=== PATIENT | male | born 1990 | race Caucasian/White ===

== ENCOUNTER 2018-05-17 12:59 | Emergency (ER) ==
[2018-05-17 13:03] VITALS: BP 165/99; TEMP 99.7; BMI 40.0
[2018-05-17] MEDS ORDERED: LIDOCAINE HCL 1% SDV SUBCUT STA (15:26)
[2018-05-17] MEDS ORDERED: LIDOCAINE HCL 1% SDV ONE (15:27)
--- NOTE | 2018-05-17 15:34 | ED.PDOC ---
General ED Provider: Dr. AISSATOU SANCHEZ Chief Complaint: Tooth Problem Stated Complaint: DENTAL PAIN Time Seen by Physician: 13:00 Mode of Arrival: Walk-In Information Source: Patient Exam Limitations: No limitations Primary Care Provider: DIOGO JUSTICE Nursing and Triage Documentation Reviewed and Agree: Yes Does patient meet sepsis criteria?: No System Inflammatory Response Syndrome: Not Applicable Sepsis Protocol: For patient's 13 years and over: Temp is 96.8 and below OR 101 and greater Pulse >90 BPM Resp >20/minute Acutely Altered Mental Status Are patient's symptoms suggestive of a new infection, such as: -Pneumonia -Skin, Soft Tissue -Endocarditis -UTI -Bone, Joint Infection -Implantable Device -Acute Abdominal Infection -Wound Infection -Meningitis -Blood Stream Catheter Infection -Unknown EENT Complaint Exam - Dental/Oral Complaint/Exam Mechanism of Injury: No known trauma Onset/Duration: 1 WEEK Timing: Intermittent Initial Severity: Moderate Current Severity: Severe Character: Reports: Throbbing Aggravating: Reports: Heat, Cold Alleviating: Reports: Heat, Cold Associated Signs and Symptoms: Denies: Swelling, Discharge, Fever, Foul odor, Foul taste in mouth Related History: Reports: Similar episode Cardiac Risk Factors: Reports: None Dental/Oral Surgical History: Reports: None Tooth Findings: Present: Gross caries, Dental fracture Cervical Lymphadenopathy Present: No Facial Swelling Present: No Bleeding Present: No Oropharynx Findings: Absent: Clots, Active bleeding Septal Hematoma: No Foreign Body Present: No Dysphagia Present: No Drooling Present: No Asymmetrical Tonsillar Swelling Present: No Uvula Midline: Yes Sabiha-tonsillar Fluctuence: No Trismus Present: No Palatal Petechiae Present: No Scarlatinaform Rash Present: No Lesions: Absent: Lip, Gums, Tongue, Buccal Mucosa, Pharynx Exanthem: Absent: Lip, Gums, Tongue, Buccal Mucosa, Pharynx Vesicles: Absent: Lip, Gums, Tongue, Buccal Mucosa, Pharynx Teeth Picture: 1 - BROKEN Differential Diagnoses: Dental Caries, Fractured Tooth Review of Systems - Review Of Systems Constitutional: Reports: No symptoms Eyes: Reports: No symptoms Ears, Nose, Mouth, Throat: Reports: No symptoms Respiratory: Reports: No symptoms Cardiac: Reports: No symptoms GI: Reports: No symptoms : Reports: No symptoms Musculoskeletal: Reports: No symptoms Skin: Reports: No symptoms Neurological: Reports: No symptoms Endocrine: Reports: No symptoms Hematologic/Lymphatic: Reports: No symptoms All Other Systems: Reviewed and Negative Past Medical History - Past Medical History Previously Healthy: Yes Endocrine: Reports: None Cardiovascular: Reports: None Respiratory: Reports: None Hematological: Reports: None Gastrointestinal: Reports: None Genitourinary: Reports: None Neuro/Psych: Reports: None Musculoskeletal: Reports: None Cancer: Reports: None - Surgical History General Surgical History: Reports: None - Family History Family History: Reports: None - Social History Smoking Status: Current every day smoker Hx Substance Use: No Alcohol Screening: None Physical Exam - Physical Exam Appearance: Well-appearing, No pain distress, Well-nourished Eyes: RAFAELA, EOMI, Conjunctiva clear ENT: Ears normal, Nose normal, Oropharynx normal Respiratory: Airway patent, Breath sounds clear, Breath sounds equal, Respirations nonlabored Cardiovascular: RRR, Pulses normal, No rub, No murmur GI/: Soft, Nontender, No masses, Bowel sounds normal, No Organomegaly Musculoskeletal: Normal strength, ROM intact, No edema, No calf tenderness Skin: Warm, Dry, Normal color Neurological: Sensation intact, Motor intact, Reflexes intact, Cranial nerves intact, Alert, Oriented Psychiatric: Affect appropriate, Mood appropriate Procedures - Additional Procedures Additional Procedures: Dental Block (1ML PLAIN LIDOCAINE USED ,IMMEDIATE PAIN RELIFE NOTED ) Critical Care Note - Critical Care Note Total Time (mins): 0 Course - Course Orders, Labs, Meds: Orders Category Date Time Status Lidocaine HCl/Pf [Lidocaine HCl 1% Sdv] MEDS 05/17/18 15:27 Discontinued 5 ml .ROUTE .STK-MED ONE Lidocaine HCl/Pf [Lidocaine HCl 1% Sdv] MEDS 05/17/18 15:26 Stat 5 ml SUBCUT ONCE STA Medications Discontinued Medications Generic Name Dose Route Start Last Admin Trade Name Freq PRN Reason Stop Dose Admin Lidocaine HCl 5 ml 05/17/18 15:26 Lidocaine Hcl 1% Sdv SUBCUT 05/17/18 15:27 ONCE STA Vital Signs: Temp Pulse Resp BP Pulse Ox 05/17/18 13:01 99.7 F H 113 H 16 165/99 H 96 Departure - Departure Time of Disposition: 15:35 (ALICE FROM ADMINSTRATION WAS PRESENT) Disposition: HOME SELF-CARE Discharge Problem: Toothache Instructions: Toothache (ED) Condition: Good Pt referred to PMD for follow-up: Yes IPMP verified?: No Additional Instructions: Please call your Family Physician as soon as possible to schedule a follow-up appointment. Prescriptions: Amoxicillin 500 mg PO Q8HR #30 tablet Hydrocodone/Acetaminophen [[place] 10-325 Tablet] 1 each PO Q8HR #20 tablet Allergies/Adverse Reactions: Allergies No Known Allergies Allergy (Unverified 05/17/18 13:03) Home Medications: Ambulatory Orders Amoxicillin 500 mg PO Q8HR #30 tablet 05/17/18 Fluticasone Propionate [Flonase] 1 spray NS BID 05/17/18 Hydrocodone/Acetaminophen [[place] 10-325 Tablet] 1 each PO Q8HR #20 tablet Disposition Discussed With: Patient, Family
== END 2018-05-17 15:52 | disposition home or self-care (01) ==
LOC: ED 12:59
DX: K08.89 Other specified disorders of teeth and supporting structures (principal); K02.7 Dental root caries; S02.5XXA Fracture of tooth (traumatic), initial encounter for closed fracture; F17.210 Nicotine dependence, cigarettes, uncomplicated
CPT/HCPCS: 99282

== ENCOUNTER 2018-06-27 05:56 | Emergency (ER) ==
[2018-06-27 06:02] VITALS: BP 152/99; TEMP 97.7; BMI 40.4
[2018-06-27] MEDS ORDERED: MOTRIN PO STA (06:27)
[2018-06-27] MEDS ORDERED: AMOXIL PO STA (06:27)
--- NOTE | 2018-06-27 06:29 | ED.PDOC ---
General ED Provider: Dr. TESS SEGUNDO Chief Complaint: Tooth Problem Stated Complaint: Patient is a 27 year old male who states he has a bad tooth on the left upper molar. Time Seen by Physician: 06:26 Mode of Arrival: Walk-In Information Source: Patient Exam Limitations: No limitations Primary Care Provider: DIOGO JUSTICE Nursing and Triage Documentation Reviewed and Agree: Yes Does patient meet sepsis criteria?: No System Inflammatory Response Syndrome: Not Applicable Sepsis Protocol: For patient's 13 years and over: Temp is 96.8 and below OR 101 and greater Pulse >90 BPM Resp >20/minute Acutely Altered Mental Status Are patient's symptoms suggestive of a new infection, such as: -Pneumonia -Skin, Soft Tissue -Endocarditis -UTI -Bone, Joint Infection -Implantable Device -Acute Abdominal Infection -Wound Infection -Meningitis -Blood Stream Catheter Infection -Unknown EENT Complaint Exam - Dental/Oral Complaint/Exam Mechanism of Injury: No known trauma Onset/Duration: yesterday at noon Symptoms Are: Still present Timing: Constant Initial Severity: Moderate Current Severity: Severe Location: Left upper molar Character: Reports: Aching, Throbbing Aggravating: Reports: Heat, Cold, Chewing, Exertion (and smoking ) Alleviating: Reports: None Associated Signs and Symptoms: Reports: Swelling, Foul odor, Foul taste in mouth Related History: Reports: Similar episode Cardiac Risk Factors: Reports: None Dental/Oral Surgical History: Reports: None Tooth Findings: Present: Gross decay, Gross caries, Abcess Cervical Lymphadenopathy Present: No Facial Swelling Present: No Bleeding Present: No Oropharynx Findings: Absent: Clots, Active bleeding Septal Hematoma: No Foreign Body Present: No Dysphagia Present: No Drooling Present: No Asymmetrical Tonsillar Swelling Present: No Uvula Midline: No Sabiha-tonsillar Fluctuence: No Trismus Present: No Palatal Petechiae Present: No Scarlatinaform Rash Present: No Teeth Picture: 1 - Abscess, Tooth decay. Differential Diagnoses: Dental Abcess, Dental Caries Review of Systems - Review Of Systems Constitutional: Reports: No symptoms Eyes: Reports: No symptoms Ears, Nose, Mouth, Throat: Reports: Mouth pain Respiratory: Reports: No symptoms Cardiac: Reports: No symptoms GI: Reports: No symptoms : Reports: No symptoms Musculoskeletal: Reports: No symptoms Skin: Reports: No symptoms Neurological: Reports: No symptoms Endocrine: Reports: No symptoms Hematologic/Lymphatic: Reports: No symptoms All Other Systems: Reviewed and Negative Past Medical History - Past Medical History Previously Healthy: Yes Endocrine: Reports: None Cardiovascular: Reports: None Respiratory: Reports: None Hematological: Reports: None Gastrointestinal: Reports: None Genitourinary: Reports: None Neuro/Psych: Reports: None Musculoskeletal: Reports: None Cancer: Reports: None - Surgical History General Surgical History: Reports: None - Family History Family History: Reports: None - Social History Smoking Status: Current every day smoker Hx Substance Use: No Alcohol Screening: None Physical Exam - Physical Exam Appearance: Ill-appearing, Obese Ill-appearing: Mild Pain Distress: Severe Eyes: RAFAELA, EOMI, Conjunctiva clear ENT: Ears normal, Nose normal, Oropharynx normal Neck: Supple Respiratory: Airway patent, Breath sounds clear, Breath sounds equal, Respirations nonlabored Cardiovascular: RRR, Pulses normal, No rub, No murmur Musculoskeletal: Normal strength Skin: Warm, Dry Neurological: Alert, Oriented Psychiatric: Affect appropriate, Mood appropriate Re-Evaluation - Re-Evaluation Time of Re-Evaluation: 06:40 Status: Improved Critical Care Note - Critical Care Note Total Time (mins): 0 Course - Course Vital Signs: Temp Pulse Resp BP Pulse Ox 06/27/18 05:57 97.7 F 93 H 20 152/99 H 98 Departure - Departure Time of Disposition: 06:45 Disposition: HOME SELF-CARE Discharge Problem: Dental abscess, Toothache Instructions: Dental Abscess (ED), How to Stop Smoking (ED) Condition: Fair Pt referred to PMD for follow-up: Yes IPMP verified?: No Additional Instructions: Follow up with your Dentist soon take Antibiotics as prescribed. Stop smoking. Prescriptions: Amoxicillin [Amoxil] 500 mg PO TID #30 capsule Ibuprofen 800 mg PO TID PRN #60 tablet PRN Reason: Dental pain Allergies/Adverse Reactions: Allergies No Known Allergies Allergy (Unverified 05/17/18 13:03) Home Medications: Ambulatory Orders Fluticasone Propionate [Flonase] 1 spray NS BID 05/17/18 Amoxicillin [Amoxil] 500 mg PO TID #30 capsule 06/27/18 Ibuprofen 800 mg PO TID PRN #60 tablet 06/27/18 Disposition Discussed With: Patient
== END 2018-06-27 06:45 | disposition home or self-care (01) ==
LOC: ED 05:56
DX: K04.7 Periapical abscess without sinus (principal); K08.89 Other specified disorders of teeth and supporting structures; K02.7 Dental root caries; F17.210 Nicotine dependence, cigarettes, uncomplicated
CPT/HCPCS: 99282

== ENCOUNTER 2019-02-20 06:03 | Emergency (ER) ==
[2019-02-20 06:20] VITALS: BP 141/92; TEMP 97.6; BMI 35.4
--- NOTE | 2019-02-20 06:32 | ED.PDOC ---
General Stated Complaint: it hurts to cough or move Time Seen by Physician: 06:30 Mode of Arrival: Walk-In Information Source: Patient Exam Limitations: No limitations Nursing and Triage Documentation Reviewed and Agree: Yes Does patient meet sepsis criteria?: No System Inflammatory Response Syndrome: Not Applicable <JOVANNI FUENTES - Last Filed: 02/20/19 06:29> <LAURAAISSATOU - Last Filed: 02/20/19 08:18> ED Provider: Dr. AISSATOU HUNT Chief Complaint: Back Pain Primary Care Provider: DIO[facility] JUSTICE Sepsis Protocol: For patient's 13 years and over: Temp is 96.8 and below OR 101 and greater Pulse >90 BPM Resp >20/minute Acutely Altered Mental Status Are patient's symptoms suggestive of a new infection, such as: -Pneumonia -Skin, Soft Tissue -Endocarditis -UTI -Bone, Joint Infection -Implantable Device -Acute Abdominal Infection -Wound Infection -Meningitis -Blood Stream Catheter Infection -Unknown Respiratory Complaint Exam - Respiratory Complaint/Exam Onset/Duration: 24 hrs Symptoms Are: Still present Timing: Constant Initial Severity: Mild Current Severity: Moderate Location: Chest Character: Reports: Non-productive cough Alleviating: Reports: None Associated Signs and Symptoms: Reports: Pleuritic chest pain History of Healthcare-Acquired Pneumonia: No Pseudomonas Risk Factors: Reports: None Tuberculosis Risk Factors: Reports: None Status Asthmaticus Risk Factors: Reports: None Home Oxygen Use: No Recent Stress Test: No Recent Echo/LV Function: No Current Antibiotic Use: No Current Asthma Medication Use: No Respiratory Distress: None Inadequate Respiratory Effort: No Dysphagia Present: No Stridor Present: No JVD Present: No Accessory Muscle Use: No Retractions: Not Present Diminished Breath Sounds: No Sinus Tenderness: None Grunting Respirations: No Kussmaul Respirations: No Differential Diagnoses: Pneumonia, Other <JOVANNI FUENTES - Last Filed: 02/20/19 06:29> Review of Systems - Review Of Systems Constitutional: Reports: No symptoms Eyes: Reports: No symptoms Ears, Nose, Mouth, Throat: Reports: No symptoms Respiratory: Reports: Cough Cardiac: Reports: Chest pain GI: Reports: No symptoms : Reports: No symptoms Musculoskeletal: Reports: No symptoms Skin: Reports: No symptoms Neurological: Reports: No symptoms Endocrine: Reports: No symptoms Hematologic/Lymphatic: Reports: No symptoms All Other Systems: Reviewed and Negative <JOVANNI FUENTES Last Filed: 02/20/19 06:29> Past Medical History - Past Medical History Previously Healthy: Yes Endocrine: Reports: None Cardiovascular: Reports: None Respiratory: Reports: None Hematological: Reports: None Gastrointestinal: Reports: None Genitourinary: Reports: None Neuro/Psych: Reports: None Musculoskeletal: Reports: None Cancer: Reports: None - Surgical History General Surgical History: Reports: None - Family History Family History: Reports: None - Social History Smoking Status: Current every day smoker, Heavy tobacco smoker, Light tobacco smoker Hx Substance Use: No Alcohol Screening: Occasionally - Immunizations Tetanus Shot up to Date: Yes <ELIDASOFIAJOVANNI Last Filed: 02/20/19 06:29> Physical Exam - Physical Exam Appearance: Well-appearing, No pain distress, Well-nourished Eyes: RAFAELA, EOMI, Conjunctiva clear ENT: Ears normal, Nose normal, Oropharynx normal Neck: Supple Respiratory: Airway patent, Breath sounds clear, Breath sounds equal, Respirations nonlabored Cardiovascular: RRR, Pulses normal, No rub, No murmur GI/: Soft, Nontender, No masses, Bowel sounds normal, No Organomegaly Musculoskeletal: Normal strength, ROM intact, No edema, No calf tenderness Skin: Warm, Dry, Normal color Neurological: Sensation intact, Motor intact, Reflexes intact, Cranial nerves intact, Alert, Oriented Psychiatric: Affect appropriate <JOVANNI FUENTES Last Filed: 02/20/19 06:29> Physician Notification - Case Discussed Physician Notified: dr hunt Time of Notification: 07:00 <ALFREDOJOVANNI - Last Filed: 02/20/19 06:29> Critical Care Note - Critical Care Note Total Time (mins): 0 <AISSATOU HUNT - Last Filed: 02/20/19 08:18> Course - Course Hematology/Chemistry: 02/20/19 06:36 02/20/19 06:36 <AISSATOU HUNT - Last Filed: 02/20/19 08:18> - Course Orders, Labs, Meds: Lab Review 02/20/19 02/20/19 06:36 06:36 WBC 9.82 RBC 5.07 Hgb 15.9 Hct 45.1 MCV 89.0 MCH 31.4 H MCHC 35.3 RDW Coeff of Denisse 12.6 Plt Count 134 L Immature Gran % (Auto) 0.3 Neut % (Auto) 70.9 Lymph % (Auto) 20.2 [place] % (Auto) 5.7 Eos % (Auto) 2.4 Baso % (Auto) 0.5 Immature Gran # (Auto) 0.0 Neut # (Auto) 7.0 H Lymph # (Auto) 2.0 [place] # (Auto) 0.6 Eos # (Auto) 0.2 Baso # (Auto) 0.1 Sodium 141.4 Potassium 4.37 Chloride 107.4 H Carbon Dioxide 24.2 Anion Gap 14.17 BUN 16.5 Creatinine 1.02 Estimated GFR (MDRD) 88.00 BUN/Creatinine Ratio 16.17 Glucose 99.4 Calcium 9.15 Total Bilirubin 0.48 AST 29.9 ALT 27.0 Alkaline Phosphatase 42.3 Total Protein 6.73 Albumin 4.38 Globulin 2.35 Albumin/Globulin Ratio 1.86 Orders Category Date Time Status NPO REMINDER: IMAGING ONCE CARE 02/20/19 06:28 Active IV [ED IV/MEDIPORT/POWERPORT] .ONCE EMERGENCY 02/20/19 06:27 Active CBC W/ AUTO DIFF Stat LAB 02/20/19 06:36 Completed CMP [COMPREHENSIVE METABOLIC PANEL] Stat LAB 02/20/19 06:36 Completed 0.9 % Sodium Chloride [Saline Flush] MEDS 02/20/19 06:27 Active 1 syr IVF PRN PRN CT CHEST PE PROTOCOL Stat RADS 02/20/19 06:27 Completed Medications Generic Name Dose Route Start Last Admin Trade Name Freq PRN Reason Stop Dose Admin Sodium Chloride 1 syr 02/20/19 06:27 Saline Flush IVF PRN PRN To flush IV Vital Signs: Temp Pulse Resp BP Pulse Ox 02/20/19 06:07 97.6 F 69 20 141/92 H 97 Departure <JOVANNI FUENTES - Last Filed: 02/20/19 06:29> - Departure Time of Disposition: 08:13 Pt referred to PMD for follow-up: Yes IPMP verified?: No Disposition Discussed With: Patient <AISSATOU HUNT - Last Filed: 02/20/19 08:18> - Departure Disposition: HOME SELF-CARE Discharge Problem: Breast mass in male Chest pain Qualifiers: Chest pain type: unspecified Qualified Code(s): R07.9 - Chest pain, unspecified Instructions: Breast Mass (ED), Thoracolumbar Fracture (ED) Condition: Good Additional Instructions: Please call your Family Physician as soon as possible to schedule a follow-up appointment. 2 pots on your back are broken, these seem to be stable in nature and chronic per out x ray doctor. x ray doctor has noted a breast issue possible mass and has recommended that you to have a ULTRA SOUND OF THE BREAST AT A DEDICATED BREAST [facility] SEE YOUR M.D. FOR FURTHER CARE AND DISCUSS THESE ISSUES Allergies/Adverse Reactions: Allergies No Known Allergies Allergy (Unverified 05/17/18 13:03) Home Medications: Ambulatory Orders Fluticasone Propionate [Flonase] 1 spray NS BID 05/17/18 Ibuprofen 800 mg PO TID PRN 02/20/19
--- NOTE | 2019-02-20 07:40 | CT ---
EXAM: CTA CHEST (PE PROTOCOL) HISTORY: Pleuritic chest pain TECHNIQUE: CTA chest with intravenous contrast. Multiplanar images were provided with 3-D reconstru ctions. 100 mL Omnipaque. COMPARISON: None FINDINGS: No pulmonary arterial filling defect. Normal heart size. No pericardial effusion. Unremarkable tho racic aorta. Lungs are clear. No consolidations or vascular congestion. No pneumothorax. There is no pleural th ickening or pleural fluid. Bones reveal spinous process fractures at T8 and T9 which are age indeterminate although likely chron ic. Correlate clinically. Peripheral soft tissues demonstrate a right subareolar soft tissue opacit y measuring 2.5 x 3.2 cm. IMPRESSION: 1. No pulmonary arterial thromboembolism. 2. Lungs are clear. No pleural abnormality. 3. Spinous process fractures at T8 and T9, likely chronic. 4. Right subareolar soft tissue mass likely due to the asymmetric gynecomastia. Ultrasound followup at a dedicated breast center is recommended.
== END 2019-02-20 08:38 | disposition home or self-care (01) ==
LOC: ED 06:03
DX: R07.9 Chest pain, unspecified (principal); N63.0 Unspecified lump in unspecified breast; R05 Cough; M54.9 Dorsalgia, unspecified; S22.069A Unspecified fracture of T7-T8 vertebra, initial encounter for closed fracture; S22.079A Unspecified fracture of T9-T10 vertebra, initial encounter for closed fracture; F17.210 Nicotine dependence, cigarettes, uncomplicated
CPT/HCPCS: 36415; 80053; 85025; 99283

== ENCOUNTER 2019-04-12 09:10 | Emergency (ER) ==
[2019-04-12 09:14] VITALS: BP 131/90; TEMP 98.2; BMI 32.3
[2019-04-12] MEDS ORDERED: SODIUM CHLORIDE 1,000 ML IV STA ×3 (09:53→13:21)
--- NOTE | 2019-04-12 14:44 | ED.PDOC ---
General ED Provider: Dr. AISSATOU SANCHEZ Chief Complaint: Nausea/Vomiting Stated Complaint: N/V/ WEAKNESS Time Seen by Physician: 09:19 (NO NEURO DEFICITS UPON PRESENTATION) Mode of Arrival: Walk-In Information Source: Patient Exam Limitations: No limitations Primary Care Provider: DIOGO JUSTICE Nursing and Triage Documentation Reviewed and Agree: Yes Does patient meet sepsis criteria?: No System Inflammatory Response Syndrome: Not Applicable Sepsis Protocol: For patient's 13 years and over: Temp is 96.8 and below OR 101 and greater Pulse >90 BPM Resp >20/minute Acutely Altered Mental Status Are patient's symptoms suggestive of a new infection, such as: -Pneumonia -Skin, Soft Tissue -Endocarditis -UTI -Bone, Joint Infection -Implantable Device -Acute Abdominal Infection -Wound Infection -Meningitis -Blood Stream Catheter Infection -Unknown Neurological Complaint Exam - Syncope/Near Syncope Complaint/Exam Onset/Duration: 1 DAY. 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)NOT BEEN DRINKING ENOUGH Episodes Witnessed: No Loss of Consciousness: No Associated Head Trauma: No Activity at Onset: Unknown Aggravating: None Alleviating: Reports: None Associated Signs and Symptoms: Denies: Pain, Decreased oral intake, Vomiting, Diarrhea, GI blood loss, Short of air, Chest pain, Palpitations, Diaphoresis, Lightheadedness, Dizziness, Weakness, AMS, Numbness, Headache, Seizure, Remote head trauma, Recent head trauma Related History: Similar episode (DUE TO HEAT) Cardiac Risk Factors: Reports: None GI Bleed Risk Factors: Reports: None Dysrhythmia Risk Factors: Reports: None Related Surgical History: Reports: None JVD Present: No Carotid Bruit Present: No Rectal Heme Positive: No Glascow Coma Scale (see protocol): 15 Nystagmus Present: Yes Gag Reflex Present: No Meningeal Signs Positive: No Focal Weakness: Present: None Focal Sensory Loss: Present: None Gait: Normal [id number]: Normal Findings Romberg Test Positive: No Babinski Sign: Negative Right, Negative Left Heel to Toe Normal: Yes Branch-Hallpike Test Positive: No Differential Diagnoses: Metabolic Reaction, Vasovagal Episode Quality Indicators for Cardiac Chest Pain: EKG in 10min. Quality Indicator For Non-Traumatic Chest Pain/Syncope: EKG Performed Quality Indicators for AMI: EKG in 10min. Review of Systems - Review Of Systems Constitutional: Reports: No symptoms Eyes: Reports: No symptoms Ears, Nose, Mouth, Throat: Reports: No symptoms Respiratory: Reports: No symptoms Cardiac: Reports: No symptoms GI: Reports: Nausea, Poor appetite, Vomiting : Reports: No symptoms Musculoskeletal: Reports: No symptoms Skin: Reports: No symptoms Neurological: Reports: No symptoms Endocrine: Reports: No symptoms Hematologic/Lymphatic: Reports: No symptoms All Other Systems: Reviewed and Negative Past Medical History - Past Medical History Previously Healthy: Yes Endocrine: Reports: None Cardiovascular: Reports: None Respiratory: Reports: None Hematological: Reports: None Gastrointestinal: Reports: None Genitourinary: Reports: None Neuro/Psych: Reports: None Musculoskeletal: Reports: None Cancer: Reports: None - Surgical History General Surgical History: Reports: None - Family History Family History: Reports: None - Social History Smoking Status: Current every day smoker Hx Substance Use: No Alcohol Screening: None Physical Exam - Physical Exam Appearance: Well-appearing, No pain distress, Well-nourished Eyes: RAFAELA, EOMI, Conjunctiva clear ENT: Ears normal, Nose normal, Oropharynx normal Respiratory: Airway patent, Breath sounds clear, Breath sounds equal, Respirations nonlabored Cardiovascular: RRR, Pulses normal, No rub, No murmur GI/: Soft, Nontender, No masses, Bowel sounds normal, No Organomegaly Musculoskeletal: Normal strength, ROM intact, No edema, No calf tenderness Skin: Warm, Dry, Normal color Neurological: Sensation intact, Motor intact, Reflexes intact, Cranial nerves intact, Alert, Oriented Psychiatric: Affect appropriate, Mood appropriate - NIH Stroke Scale 1a. Level of Consciousness: 0=Alert and keenly responsive 1b. Level of Consciousness Questions: 0=Answers correctly to two questions 1c. Level of Consciousness Commands: 0=Performs two tasks correctly 2. Best Gaze: 0=Normal 3. Visual: 0=No visual loss 4. Facial Palsy: 0=Normal 5a. Motor Left Arm: 0=No drift,arm holds 90 degrees for 10 sec., leg 30 degrees for 5 sec. 5b. Motor Right Arm: 0=No drift,arm holds 90 degrees for 10 sec., leg 30 degrees for 5 sec. 6b. Motor Right Le=No drift,arm holds 90 degrees for 10 sec., leg 30 degrees for 5 sec. 7. Limb Ataxia: 0=Absent 8. Sensory: 0=Normal 10. Dysarthria: 0=Normal 11. Extincion and Inattention: 0=Normal Stroke Scale Total: 0 Interpretation - Inspector Outside Steam Distribution Rate: Normal Rhythm: Sinus Ectopy: None - EKG Interpretation Rate: Normal Rhythm: Sinus Re-Evaluation - Re-Evaluation Time of Re-Evaluation: 11:00 Status: Improved Vital Signs Stable: Yes Pain Level: 0 Appearance: NAD Lungs: Clear Skin: Warm and Dry Neuro: Alert and Oriented X3 CV: RRR - Re-Evaluation Time of Re-Evaluation: 14:46 Status: Improved Vital Signs Stable: Yes Pain Level: 0 Appearance: NAD Skin: Warm and Dry Neuro: Alert and Oriented X3 CV: RRR (HYDRATION MADE PT FEEL MARKEDLY IMPROVED BUN/INDUSTRIAL CUSTODIAN DISCUSSED MUST REPEAT IN 1 WEEKS TIMES) Critical Care Note - Critical Care Note Total Time (mins): 0 Course - Course Hematology/Chemistry: 04/12/19 10:00 04/12/19 12:40 Orders, Labs, Meds: Lab Review 04/12/19 04/12/19 04/12/19 10:00 10:00 10:38 WBC 9.58 RBC 5.52 Hgb 17.1 Hct 48.4 MCV 87.7 MCH 31.0 MCHC 35.3 RDW Coeff of Denisse 12.6 Plt Count 176 Immature Gran % (Auto) 0.2 Neut % (Auto) 77.3 Lymph % (Auto) 14.2 [place] % (Auto) 6.6 Eos % (Auto) 1.4 Baso % (Auto) 0.3 Immature Gran # (Auto) 0.0 Neut # (Auto) 7.4 H Lymph # (Auto) 1.4 [place] # (Auto) 0.6 Eos # (Auto) 0.1 Baso # (Auto) 0.0 Sodium 142.9 Potassium 4.35 Chloride 101.7 Carbon Dioxide 27.1 Anion Gap 18.45 BUN 28.2 H Creatinine 1.53 H Estimated GFR (MDRD) 55.00 BUN/Creatinine Ratio 18.43 Glucose 87.7 Calcium 10.10 Total Bilirubin 0.69 AST 31.9 ALT 29.7 Alkaline Phosphatase 46.0 Total Protein 8.22 H Albumin 5.26 H Globulin 2.96 Albumin/Globulin Ratio 1.77 Urine Color Yellow Urine Clarity Clear Urine pH 5.5 Ur Specific [place] 1.025 Urine Protein 1+ Urine Glucose (UA) Negative Urine Ketones Negative Urine Blood Negative Urine Nitrite Negative Urine Bilirubin Negative Urine Urobilinogen 0.2 Ur Leukocyte Esterase Negative Urine Microscopic WBC 0-2 Ur Squamous Epith Cells 0-2 Hyaline Casts 0-2 Urine Mucus Trace 04/12/19 12:40 WBC RBC Hgb Hct MCV MCH MCHC RDW Coeff of Denisse Plt Count Immature Gran % (Auto) Neut % (Auto) Lymph % (Auto) [place] % (Auto) Eos % (Auto) Baso % (Auto) Immature Gran # (Auto) Neut # (Auto) Lymph # (Auto) [place] # (Auto) Eos # (Auto) Baso # (Auto) Sodium 140.5 Potassium 4.91 Chloride 106.1 Carbon Dioxide 26.1 Anion Gap 13.21 BUN 26.0 H Creatinine 1.20 H Estimated GFR (MDRD) 73.00 BUN/Creatinine Ratio 21.66 Glucose 82.4 Calcium 8.93 Total Bilirubin 0.54 AST 31.4 ALT 26.8 Alkaline Phosphatase 45.4 Total Protein 7.18 Albumin 4.61 Globulin 2.57 Albumin/Globulin Ratio 1.79 Urine Color Urine Clarity Urine pH Ur Specific [place] Urine Protein Urine Glucose (UA) Urine Ketones Urine Blood Urine Nitrite Urine Bilirubin Urine Urobilinogen Ur Leukocyte Esterase Urine Microscopic WBC Ur Squamous Epith Cells Hyaline Casts Urine Mucus Orders Category Date Time Status EKG-(ED ONLY) Stat CARDIO 04/12/19 09:52 Completed EKG-(ED ONLY) Stat CARDIO 04/12/19 10:06 Completed ED IV/MEDIPORT/POWERPORT .ONCE EMERGENCY 04/12/19 09:52 Active ED IV/MEDIPORT/POWERPORT .ONCE EMERGENCY 04/12/19 09:53 Active CBC W/ AUTO DIFF Stat LAB 04/12/19 10:00 Completed CMP [COMPREHENSIVE METABOLIC PANEL] Stat LAB 04/12/19 12:40 Completed CMP [COMPREHENSIVE METABOLIC PANEL] Stat LAB 04/12/19 14:30 Ordered COMPREHENSIVE METABOLIC PANEL Stat LAB 04/12/19 10:00 Completed URINALYSIS C & S IF INDICATED Stat LAB 04/12/19 10:38 Completed 0.9 % Sodium Chloride [Saline Flush] MEDS 04/12/19 09:52 Active 1 syr IVF PRN PRN 0.9 % Sodium Chloride [Saline Flush] MEDS 04/12/19 09:53 Discontinued 1 syr IVF PRN PRN Sodium Chloride 0.9% [Sodium Chloride] 1,000 ml MEDS 04/12/19 09:53 Discontinued IV BOLUS Sodium Chloride 0.9% [Sodium Chloride] 1,000 ml MEDS 04/12/19 10:59 Discontinued IV BOLUS Sodium Chloride 0.9% [Sodium Chloride] 1,000 ml MEDS 04/12/19 13:21 Discontinued IV BOLUS Medications Generic Name Dose Route Start Last Admin Trade Name Freq PRN Reason Stop Dose Admin Sodium Chloride 1 syr 04/12/19 09:52 04/12/19 10:10 Saline Flush IVF 1 syr PRN PRN Administration To flush IV Discontinued Medications Generic Name Dose Route Start Last Admin Trade Name Freq PRN Reason Stop Dose Admin Sodium Chloride 1,000 mls @ 1,000 mls/hr 04/12/19 09:53 04/12/19 10:10 Sodium Chloride IV 04/12/19 10:52 1,000 mls/hr BOLUS STA Administration Sodium Chloride 1,000 mls @ 1,000 mls/hr 04/12/19 10:59 04/12/19 11:21 Sodium Chloride IV 04/12/19 11:58 1,000 mls/hr BOLUS STA Administration Sodium Chloride 1,000 mls @ 1,000 mls/hr 04/12/19 13:21 04/12/19 13:26 Sodium Chloride IV 04/12/19 14:20 1,000 mls/hr BOLUS STA Administration Sodium Chloride 1 syr 04/12/19 09:53 Saline Flush IVF PRN PRN To flush IV Vital Signs: Temp Pulse Resp BP Pulse Ox 04/12/19 09:10 98.2 F 108 H 18 131/90 99 Departure - Departure Time of Disposition: 14:48 Disposition: HOME SELF-CARE Discharge Problem: Nausea, Vomiting, Dehydration, Renal insufficiency, mild Instructions: Dehydration (ED) Condition: Good Pt referred to PMD for follow-up: Yes IPMP verified?: No Additional Instructions: Please call your Family Physician as soon as possible to schedule a follow-up appointment.you must repeat your kidney test , it seems your were dehydrated and that can cause abnormal kidney test but you must have them checked soon Allergies/Adverse Reactions: Allergies No Known Allergies Allergy (Unverified 05/17/18 13:03) Home Medications: Ambulatory Orders Fluticasone Propionate [Flonase] 1 spray NS BID 05/17/18 Ibuprofen 800 mg PO TID PRN 02/20/19 Amoxicillin 500 mg PO DAILY 04/12/19 Disposition Discussed With: Patient
== END 2019-04-12 14:52 | disposition home or self-care (01) ==
LOC: ED 09:10
DX: R11.2 Nausea with vomiting, unspecified (principal); E86.0 Dehydration; N28.9 Disorder of kidney and ureter, unspecified; R53.1 Weakness; F17.210 Nicotine dependence, cigarettes, uncomplicated
CPT/HCPCS: 36415; 80053; 81001; 85025; 93005; 93010; 96360; 96361; 99283

== ENCOUNTER 2025-03-22 19:30 | Observation (INO) ==
--- NOTE | 2025-03-22 19:44 | ED.PDOC ---
General [facility] ED Provider: Dr. MIREYA MEYERS MD Chief Complaint: Abdominal Pain Stated Complaint: Patient is a 34-year-old male that reported to the emergency department for abdominal pain. Patient stated that his abdominal pain has been going on since he woke up this morning. Patient stated that it has been intermittent in nature. Patient states that its epigastric pain that is sharp and radiates around both sides to his kidneys. Patient stated that he has not had any nausea or vomiting. Patient did state for the past couple days he has had diarrhea. Patient stated that he has not been around any other sick contacts. Patient stated that he has not had any trauma to the abdomen. Patient denied drinking from any impure water sources. Patient denied eating anything that did not taste abnormal to them. Patient currently rates his pain at a 6 out of 10. Patient states that nothing seems to make his symptoms better or worse. Patient also stated that he has had diaphoresis recently. Patient stated that he woke up last night and a cold sweat. Patient denied any other acute symptoms at the current time. Patient vital signs are stable. Patient's GCS is 15. Time Seen by Provider: 03/22/25 19:33 Mode of Arrival: Walk-In Information Source: Patient Exam Limitations: No limitations Primary Care Provider: DIOGO JUSTICE Nursing and Triage Documentation Reviewed and Agree: Yes Opioid Naive vs. Tolerant What is Opioid Naive?: *Opioid Naive implies the patient is not already taking opioids or not chronically receiving opioids on a daily basis. *PRN dosing is not "usually" associated with tolerance. *Patients are at higher risk of over-sedation and aspiration. What is Opioid Tolerant?: *Opioid Tolerance implies less than the expected response to an opioid. *Acquired tolerance is defined by the patient taking 60mg of oral morphine daily (or equianalgesic dose of another opioid) for 1 week or more. *Often associated with chronic pain. *May take more than usual dose to achieve desired pain control. Review of Systems Review Of Systems Constitutional: Reports Sweats GI: Reports Abdominal pain and Diarrhea All Other Systems: Reviewed and Negative Physical Exam Physical Exam Appearance: Reports Well-appearing and Obese Ill-appearing: None Pain Distress: Mild Eyes: Reports RAFAELA, EOMI and Conjunctiva clear ENT: Reports Nose normal and Oropharynx normal Neck: Supple Respiratory: Reports Airway patent, Breath sounds clear, Breath sounds equal and Respirations nonlabored Cardiovascular: Reports RRR, Pulses normal, No rub and No murmur GI/: Reports Soft, Nontender, No masses and Bowel sounds normal Musculoskeletal: Reports Normal strength, ROM intact, No edema and No calf tenderness Skin: Reports Warm, Normal color and Diaphoretic Neurological: Reports Sensation intact, Motor intact, Alert and Oriented Psychiatric: Reports Affect appropriate and Mood appropriate Physician Progress Note Physician Progress Note: Patient is a 34-year-old male that reported to the emergency department for abdominal pain. Patient stated that his abdominal pain has been going on since he woke up this morning. Patient stated that it has been intermittent in nature. Patient states that its epigastric pain that is sharp and radiates around both sides to his kidneys. Patient stated that he has not had any nausea or vomiting. Patient did state for the past couple days he has had diarrhea. Patient stated that he has not been around any other sick contacts. Patient stated that he has not had any trauma to the abdomen. Patient denied drinking from any impure water sources. Patient denied eating anything that did not taste abnormal to them. Patient currently rates his pain at a 6 out of 10. Patient states that nothing seems to make his symptoms better or worse. Patient also stated that he has had diaphoresis recently. Patient stated that he woke up last night and a cold sweat. Patient denied any other acute symptoms at the current time. Patient vital signs are stable. Patient's GCS is 15. - Will order CT of the abdomen to rule out any acute intra-abdominal pathology. - Will order baseline labs. -Will order a CXR for shortness of breath. - Will give the patient IV normal saline 1 L bolus for dehydration. - Patient has an 18,000 white count at this time. Will give IV ceftriaxone 2 g - EKG shows sinus tachycardia with a rate of 124 bpm. Normal axis is noted. Incomplete right bundle branch block noted. No acute STEMI. This EKG was interpreted by the ER physician. - Troponin is negative. - CT of the abdomen pelvis with contrast showed - Diffuse hepatic steatosis and possible cirrhosis with portal hypertension manifested by dilated main portal vein, varices and splenomegaly. No suspicious hepatic masses or ascites. Nonobstructive intestinal gas pattern and normal appendix. - Will contact facility with higher acuity of care for patient's infection and possible cirrhosis with portal hypertension and dilated portal vein/varices/and splenomegaly. -([phone]) spoke to Dr. Goncalves, GI specialist at [facility] in [facility]. I discussed the patient's case and current findings with him. He stated that he thought that it could potentially be the patient's gallbladder and that I should discuss the case further with surgery. Transfer center stated that they would get surgery on the phone and call us back. - I spoke to the patient at bedside and he stated that he has not had any pain since he has been in the emergency department. He stated that most of his pain was actually epigastrium and left upper quadrant abdominal pain. Patient stated that for approximately 5 to 10 minutes it made him double over due to the pain however once he got to the emergency department the pain has subsided. Patient stated that he has no pain at the current time. Patient does have tachycardia with a rate of 120 bpm. Patient's blood pressure is 113/88. Patient is currently receiving fluids. - Chest x-ray shows no acute cardiopulmonary disease. This radiograph was interpreted by the ER physician and over read by radiology. -([phone]) spoke to Josie hospitalist about the patient's presenting symptoms and findings on this evening's visit. She has agreed to admit this patient for observation and continue IV antibiotics. Patient is stable at time of admission. Course Course 03/22/25 19:59 03/22/25 19:59 Orders, Labs, Meds: Lab Review 03/22/25 03/22/25 03/22/25 19:50 19:56 19:59 WBC 18.21 H RBC 5.16 Hgb 16.1 Hct 47.2 MCV 91.5 MCH 31.2 H MCHC 34.1 RDW Coeff of Denisse 13.7 Plt Count 175 Immature Gran % (Auto) 0.6 Neut % (Auto) 78.0 H Lymph % (Auto) 12.1 [place] % (Auto) 8.6 Eos % (Auto) 0.4 Baso % (Auto) 0.3 Neut # (Auto) 14.2 H Lymph # (Auto) 2.2 [place] # (Auto) 1.6 Eos # (Auto) 0.1 Baso # (Auto) 0.1 Immature Gran # (Auto) 0.1 Sodium 139.9 Potassium 3.80 Chloride 100.5 Carbon Dioxide 26.8 Anion Gap 16.40 BUN 17.7 Creatinine 1.28 H Estimated GFR (MDRD) 65.00 BUN/Creatinine Ratio 13.82 Glucose 130.2 H Lactic Acid 1.33 Calcium 9.38 Total Bilirubin 1.00 AST 29.5 ALT 36.6 Alkaline Phosphatase 58.8 Troponin I < 0.012 Total Protein 7.99 Albumin 4.74 Globulin 3.25 Albumin/Globulin Ratio 1.45 Lipase 65.5 D-Dimer 274.29 Urine Color Yellow Urine Clarity Clear Urine pH 6.0 Ur Specific [place] >=1.030 Urine Protein 2+ H Urine Glucose (UA) Negative Urine Ketones Trace H Urine Blood Negative Urine Nitrite Negative Urine Bilirubin 1+ H Urine Urobilinogen 1.0 H Ur Leukocyte Esterase Negative Urine Microscopic RBC 2-5 Urine Microscopic WBC 0-2 Ur Squamous Epith Cells 5-10 Urine Mucus 2+ Influ A Molecular Assay Negative by naat Influ B Molecular Assay Negative by naat SARS CoV-2 RNA Rapid HAKEEM Negative Orders Category Date Time Status EKG-(ED ONLY) Stat CARDIO 03/22/25 20:07 Completed NPO REMINDER: IMAGING ONCE CARE 03/22/25 19:39 Completed ED IV/MEDIPORT/POWERPORT .ONCE EMERGENCY 03/22/25 19:39 Active CBC W/ AUTO DIFF Stat LAB 03/22/25 19:59 Completed COMPREHENSIVE METABOLIC PANEL Stat LAB 03/22/25 19:59 Completed COVID [SARS COV-2 RNA RAPID HAKEEM] Stat LAB 03/22/25 19:50 Completed D-DIMER Stat LAB 03/22/25 19:56 Completed FLU A & B MOLECULAR [FLU A/B MOLECULAR] Stat LAB 03/22/25 19:50 Completed LACTIC ACID Stat LAB 03/22/25 19:59 Completed LIPASE Stat LAB 03/22/25 19:59 Completed RAPID STREP SCREEN [MOLECULAR GROUP A STREP] Stat LAB 03/22/25 19:50 Completed TROPONIN I Stat LAB 03/22/25 19:59 Completed URINALYSIS C & S IF INDICATED Stat LAB 03/22/25 19:50 Completed 0.9 % Sodium Chloride [Saline Flush] Meds 03/22/25 19:39 Active 1 syr IVF PRN PRN Ceftriaxone 1 gm Vial [Rocephin 1 gm Vial] Meds 03/22/25 20:19 Discontinued 2 gm IVP ONCE ONE Iohexol [Omnipaque 350 mg/ml 100Ml] Meds 03/22/25 20:22 Discontinued 100 ml IVP ONCE ONE Sodium Chloride 0.9% [Sodium Chloride] 1,000 ml Meds 03/22/25 19:39 Discontinued IV BOLUS CHEST, 1V AP ONLY Stat RADS 03/22/25 21:[address] ABDOMEN/PELVIS W CONTRAST Stat RADS 03/22/25 19:39 Completed Medications Generic Name Dose Route Start Last Admin Trade Name Freq PRN Reason Stop Dose Admin Sodium Chloride 1 syr 03/22/25 19:39 0.9% Sodium Chloride 10 Ml Disp.Syrin IVF PRN PRN To flush IV Discontinued Medications Generic Name Dose Route Start Last Admin Trade Name Freq PRN Reason Stop Dose Admin Ceftriaxone Sodium 2 gm 03/22/25 20:19 03/22/25 20:55 Ceftriaxone 1 Gm Vial IVP 03/22/25 20:20 2 gm ONCE ONE Administration Sodium Chloride 1,000 mls @ 1,000 mls/hr 03/22/25 19:39 03/22/25 21:10 Sodium Chloride IV 03/22/25 20:38 Infused BOLUS ONE Infusion Iohexol 100 ml 03/22/25 20:22 03/22/25 20:26 Iohexol 350 Mg/Ml 100ml IVP 03/22/25 20:23 100 ml ONCE ONE Administration Vital Signs: Temp Pulse Resp BP Pulse Ox 03/22/25 19:35 98.4 F 125 H 20 134/106 H 98 Discharge Plan Discharge Patient Disposition: PLACED OBSERVATION Discharge Problem: Leukocytosis Qualifiers: Leukocytosis type: unspecified Qualified Code(s): D72.829 - Elevated white blood cell count, unspecified Abdominal pain Qualifiers: Abdominal location: left upper quadrant Qualified Code(s): R10.12 - Left upper quadrant pain Did you review [place] [employer] for ALL controlled substances?: Not Applicable ED Provider: MIREYA MEYERS Condition: Stable
[2025-03-22 20:04] LABS: IMMATURE GRANULOCYTE # (AUTO) 0.1 (0.0-1.0); IMMATURE GRANULOCYTE % (AUTO) 0.6 % (0.0-5.0); RDW COEFFICIENT OF VARIATION 13.7 % (11.6-14.8)
[2025-03-22 20:06] LABS: GLUCOSE, URINE (UA) Negative (NEGATIVE); LEUKOCYTE ESTERASE ,URINE Negative (NEGATIVE); URINE, BLOOD Negative (NEGATIVE)
[2025-03-22] MEDS: SODIUM CHLORIDE 1,000 ML IV ONE (20:06)
[2025-03-22 20:16] LABS: CREATININE 1.28 mg/dL (0.60-1.10)
[2025-03-22 20:19] LABS: MOLECULAR FLU A NEGATIVE BY NAAT (NEGATIVE); MOLECULAR FLU B NEGATIVE BY NAAT (NEGATIVE); SARS COV-2 RNA RAPID NAAT NEGATIVE (NEGATIVE)
[2025-03-22 20:21] LABS: URINE WBC, MICROSCOPIC 0-2 (0-2)
[2025-03-22] MEDS: OMNIPAQUE 350 MG/ML 100ML IVP ONE (20:26)
--- NOTE | 2025-03-22 20:48 | CT ---
EXAM: CT ABDOMEN/PELVIS WITH CONTRAST HISTORY: Acute epigastric abdominal pain. Vomiting, chills and diarrhea. COMPARISON: None. TECHNIQUE: Multi-slice postcontrast transaxial helical images are acquired through the abdomen and pelvis with coronal and sagittal reconstructed images. All CT scans are performed using dose optimization techniques as appropriate to the performed exam and includes at least one of the following: Automated exposure control, adjustment of the mA and/or kV according to size, and the use of iterative reconstruction technique. CONTRAST: 100 mL Omnipaque-350 IV FINDINGS: Lung bases: The lung bases are clear. Liver: The hepatic attenuation is diffusely low relative to the spleen. Hepatic surface contour is nodular. The portal and hepatic veins are patent. The main portal vein is dilated to 1.7 cm. Small varices are suggested in the gastrohepatic ligament. Gallbladder/bilary tree: No pericholecystic fat stranding or biliary duct dilatation. Pancreas: Normal. Adrenal glands: Normal. Spleen: Enlarged to 14.9 cm cranial-caudal with normal attenuation. Kidneys: Normal. Retroperitoneum: Normal. Peritoneum: Normal. Bowel: The appendix is normal. No intestinal distension. The large bowel maintains normal caliber. No fluid is appreciated within the rectum. Pelvis: Normal. Addominal wall/bones: Normal. IMPRESSION: - Diffuse hepatic steatosis and possible cirrhosis with portal hypertension manifested by dilated main portal vein, varices and splenomegaly. - No suspicious hepatic masses or ascites. - Nonobstructive intestinal gas pattern and normal appendix. . All CT scans are performed using dose optimization techniques as appropriate to the performed exam and include at least one of the following: Automated exposure control, adjustment of the mA and/or kV according to size, and the use of iterative reconstruction technique.
[2025-03-22] MEDS: ROCEPHIN 1 GM VIAL IVP ONE (20:55)
--- NOTE | 2025-03-22 21:28 | DI ---
EXAM: CHEST RADIOGRAPH INDICATION: Shortness of breath. TECHNIQUE: Single frontal chest radiograph. COMPARISON: None. Findings: Lines/Tubes/Devices/Hardware: None. Lungs: The lung volumes are within normal limits. No focal consolidation. No pulmonary vascular congestion. Pleura: No evidence of pneumothorax. No pleural effusions. Heart and Mediastinum: The cardiomediastinal silhouette is within normal limits. Bones and Soft Tissues: The bones are normal. The soft tissues are normal. Upper Abdomen: Normal. IMPRESSION: No acute cardiopulmonary disease.
[2025-03-22] MEDS ORDERED: TYLENOL PO PRN (21:58)
[2025-03-22] MEDS ORDERED: ZOFRAN SDV IVP PRN (21:58)
[2025-03-22] MEDS: PEPCID IVP SCH (22:33)
[2025-03-22] MEDS: PROTONIX IVP SCH (22:34)
[2025-03-22] MEDS: LACTATED RINGERS 1,000 ML IV SCH (22:34)
[2025-03-22 23:55] VITALS: BMI 49.3
[2025-03-23 05:37] LABS: IMMATURE GRANULOCYTE # (AUTO) 0.1 (0.0-1.0); IMMATURE GRANULOCYTE % (AUTO) 0.7 % (0.0-5.0); RDW COEFFICIENT OF VARIATION 13.8 % (11.6-14.8)
[2025-03-23 05:48] LABS: INR 0.98 SI (0.0-3.9)
[2025-03-23 06:11] LABS: CHOL/HDL RATIO 6.2 (4.5-6.4); CREATININE 0.88 mg/dL (0.60-1.10); VLDL CHOLESTEROL 42.0 mg/dL (2-30)
--- NOTE | 2025-03-23 09:16 | US ---
EXAM: ULTRASOUND ABDOMINAL COMPLETE HISTORY: Cirrhosis. TECHNIQUE: Sonography of the abdomen was performed. Images were obtained and stored in a permanent archive. Markedly limited exam. COMPARISON: CT abdomen and pelvis 03/22/2025 FINDINGS: Pancreas: Within normal limits. Liver: Liver is enlarged measuring up to 20 cm. Increased echogenicity. No lesions. Portal vein is not visualized. Subtle nodular contour suggestive of early cirrhosis per Biliary: No duct dilation. Common bile duct measures 0.5 cm. No gallstones. No wall thickening. No surrounding inflammatory change. Spleen: No splenomegaly. No lesions. Right Kidney: No hydronephrosis. No lesions. No calculus. Left Kidney: Right kidney measures 11.2 cm. No hydronephrosis. No lesions. No calculus. IVC: Patent. Other: No ascites. IMPRESSION: - Limited study. - Possible early hepatic cirrhosis. No evidence of ascites at this time. - Hepatomegaly hepatic steatosis. Correlation with LFTs recommended. - Nonvisualization of the portal vein. However, portal vein was patent on the prior CT from 03/22/2025
[2025-03-23 09:38] VITALS: BP 140/109; PULSE 93; RESP 19; TEMP 97.4
--- NOTE | 2025-03-23 11:16 | PCM.SS ---
Provider Provider: ARABELLA SAINZ [facility]-C, [facility] Date Admission Date: 03/22/25 Discharge Date Discharge Date: 03/23/25 Primary Care Physician Primary Care Physician: DIOGO [facility] Chief Complaint Reason For Visit: ABD PAIN / LEUKOCYTOSIS History of Present Illness History of Present Illness: Admitted 03/22/25 22:37, this 34 year old /WHITE/M who presented to ER with chief complaint of severe epigastric pain, chills and 2 episodes of diarrhea. Patient states the pain was bad enough to double him over for about 20 minutes and then it finally let up. He does admit to having some acid reflux type symptoms for this past week and he had been drinking Pepto frequently. He does still have his gallbladder. In the ER he was noted to have a white blood cell count of 18. Vital stable other than some tachycardia which has been shown to be chronic for him. Lactic acid was normal. Chest x-ray was normal. CT abdomen pelvis is showing signs of cirrhosis, varices, and splenomegaly. Gallbladder appears normal. Patient was given Rocephin and admitted [facility] for further workup. Today patient's white blood cell count is improved to 14. Vitals are stable although his heart rate is still around 100. D-dimer, Trop, liver enzymes, coags, tsh, A1c normal. Lipid panel overall normal except for triglycerides are mildly elevated. Right upper quadrant ultrasound showing a normal gallbladder, also showing signs of cirrhosis. Regarding his epigastric pain, he has not had any more episodes since prior to the ER yesterday. Lipase was normal. We discussed the possibility of gastritis like symptoms, given his acid reflux this past week. We can trial omeprazole and Pepcid for 2 weeks to see if there is any improvement. Discussed that his gallbladder is anatomically normal, however cannot rule out the function of his gallbladder. If he continues to have frequent episodes of eating a fatty meal followed by epigastric pain and diarrhea, would certainly need to look into a HIDA scan. In regards to his CT abdomen pelvis findingshe denies any alcohol use. Denies any family history of liver issues. Discussed the importance of gastroenterology follow-up to look into further why he is developing cirrhosis. It is already causing splenomegaly and signs of varices. This is concerning at his age of 34. Hepatitis panel is pending. Due to signs of liver disease, elevated blood pressure, and mildly elevated heart rate, we will go ahead and start on nonselective beta-rosemary nadolol 20 mg daily. Unfortunately patient is in between having insurance right now. Discussed with him as soon as he is able to get insurance that is very important for him to follow-up with a primary care provider to get a referral to gastroenterology, otherwise we would be happy to go ahead and initiate that process. Advised patient to stop smoking and no alcohol use although he states that is very rare for him to drink. Discussed to limit Tylenol or ibuprofen use given his liver issues and potentially gastritis related symptoms. Educated on hypertension. Educated on lifestyle changes. All questions answered and at bedside in agreement with plan as well. [facility] Medical History No pertinent past medical history Z78.9 - Other specified health status (ICD-10) No pertinent past medical history Z78.9 - Other specified health status (ICD-10) Family History Other No known health problems Social History Smoking and tobacco status: Current every day smoker Tobacco type: cigarettes Smoking packs per day: 1 Smoking cigarettes per day: 20.0 Medications Mecications: Medications at Discharge (Home Meds & RX) 1 [No Reported Medications] 06/21/24 Allergies Allergies Allergy/AdvReac Type Severity Reaction Status Date / Time No Known Allergies Allergy Verified 03/22/25 19:44 Review of Systems Constitutional: Reports Fatigue, Chills and Sweats; Denies Fever Head: Reports Normocephalic and Atraumatic Cardiovascular: Denies Chest pain, Chest Pressure, Edema or Syncope Respiratory: Denies Cough or Shortness of air Gastrointestinal: Reports Diarrhea and Abdominal pain; Denies Nausea, Vomiting or Melena Genitourinary: Denies Dysuria or Hematuria Neurological: Denies Dizziness or Syncope Physical Examination Appearance: Positive No Apparent Distress, Alert and Oriented x3, Obese and Other (appears non toxic, ambulatory in the room) Head: Positive Normocephalic and Atraumatic Neck: Positive Supple and Trachea Midline Heart: Positive RRR Respiratory: Positive Breath Sounds Clear, Bilaterally and Respirations Nonlabored; Negative Crackles, Rhonchi or Wheezes GI/: Positive Soft, Nontender, Bowel sounds normal, No Distention and Other (obese abd) Extremities: Negative Edema Neurological: Positive Cranial nerves intact, Alert and Oriented Psychiatric: Positive Normal Judgement, Normal Insight, Affect Appropriate and Mood Appropriate Vital Signs (Last 4 Hours) Vital Signs Last 4 Hours: Vital Signs: Last 4 Hours 03/23/25 08:00 03/23/25 08:56 03/23/25 09:37 Temperature 97.4 F L Temperature Source Temporal Artery Scan Pulse Rate 93 Respiratory Rate 19 Blood Pressure 140/109 H Blood Pressure Mean 119 Blood Pressure Location Left Arm Blood Pressure Position Sitting O2 Sat by Pulse Oximetry 97 Oxygen Delivery Method Room Air Room Air Room Air 03/23/25 10:00 03/23/25 10:54 Temperature Temperature Source Pulse Rate Respiratory Rate Blood Pressure Blood Pressure Mean Blood Pressure Location Blood Pressure Position O2 Sat by Pulse Oximetry Oxygen Delivery Method Room Air Room Air Labs This Visit Labs This Visit: Labs This Visit 03/22/25 03/22/25 03/22/25 19:50 19:56 19:59 WBC 18.21 H RBC 5.16 Hgb 16.1 Hct 47.2 MCV 91.5 MCH 31.2 H MCHC 34.1 RDW Coeff of Denisse 13.7 Plt Count 175 Immature Gran % (Auto) 0.6 Neut % (Auto) 78.0 H Lymph % (Auto) 12.1 [place] % (Auto) 8.6 Eos % (Auto) 0.4 Baso % (Auto) 0.3 Neut # (Auto) 14.2 H Lymph # (Auto) 2.2 [place] # (Auto) 1.6 Eos # (Auto) 0.1 Baso # (Auto) 0.1 Immature Gran # (Auto) 0.1 PT INR Sodium 139.9 Potassium 3.80 Chloride 100.5 Carbon Dioxide 26.8 Anion Gap 16.40 BUN 17.7 Creatinine 1.28 H Estimated GFR (MDRD) 65.00 BUN/Creatinine Ratio 13.82 Glucose 130.2 H Hemoglobin A1c Lactic Acid 1.33 Calcium 9.38 Total Bilirubin 1.00 AST 29.5 ALT 36.6 Alkaline Phosphatase 58.8 Troponin I < 0.012 Total Protein 7.99 Albumin 4.74 Globulin 3.25 Albumin/Globulin Ratio 1.45 Triglycerides Cholesterol LDL Cholesterol, Calc VLDL Cholesterol HDL Cholesterol Cholesterol/HDL Ratio Lipase 65.5 Procalcitonin TSH D-Dimer 274.29 Urine Color Yellow Urine Clarity Clear Urine pH 6.0 Ur Specific [place] >=1.030 Urine Protein 2+ H Urine Glucose (UA) Negative Urine Ketones Trace H Urine Blood Negative Urine Nitrite Negative Urine Bilirubin 1+ H Urine Urobilinogen 1.0 H Ur Leukocyte Esterase Negative Urine Microscopic RBC 2-5 Urine Microscopic WBC 0-2 Ur Squamous Epith Cells 5-10 Urine Mucus 2+ Influ A Molecular Assay Negative by naat Influ B Molecular Assay Negative by naat SARS CoV-2 RNA Rapid HAKEEM Negative 03/23/25 05:13 WBC 14.71 H RBC 4.70 Hgb 14.7 Hct 43.6 MCV 92.8 MCH 31.3 H MCHC 33.7 RDW Coeff of Denisse 13.8 Plt Count 151 Immature Gran % (Auto) 0.7 Neut % (Auto) 79.4 H Lymph % (Auto) 11.8 [place] % (Auto) 7.5 Eos % (Auto) 0.3 Baso % (Auto) 0.3 Neut # (Auto) 11.7 H Lymph # (Auto) 1.7 [place] # (Auto) 1.1 Eos # (Auto) 0.1 Baso # (Auto) 0.1 Immature Gran # (Auto) 0.1 PT 10.2 INR 0.98 Sodium 138.7 Potassium 3.95 Chloride 103.2 Carbon Dioxide 26.9 Anion Gap 12.55 BUN 14.2 Creatinine 0.88 Estimated GFR (MDRD) 100.00 BUN/Creatinine Ratio 16.13 Glucose 134.5 H Hemoglobin A1c 5.50 Lactic Acid Calcium 8.79 Total Bilirubin 0.83 AST 25.7 ALT 33.1 Alkaline Phosphatase 53.1 Troponin I Total Protein 6.92 Albumin 4.15 Globulin 2.77 Albumin/Globulin Ratio 1.49 Triglycerides 208.7 H Cholesterol 190.1 LDL Cholesterol, Calc 118 VLDL Cholesterol 42 H HDL Cholesterol 30.8 L Cholesterol/HDL Ratio 6.2 Lipase Procalcitonin 0.06 H TSH 1.190 D-Dimer Urine Color Urine Clarity Urine pH Ur Specific [place] Urine Protein Urine Glucose (UA) Urine Ketones Urine Blood Urine Nitrite Urine Bilirubin Urine Urobilinogen Ur Leukocyte Esterase Urine Microscopic RBC Urine Microscopic WBC Ur Squamous Epith Cells Urine Mucus Influ A Molecular Assay Influ B Molecular Assay SARS CoV-2 RNA Rapid HAKEEM Microbiology This Visit 03/22/25 19:50 Throat Group A Strep Molecular Assay - Final Imaging Imaging: EXAM: CHEST RADIOGRAPH INDICATION: Shortness of breath. TECHNIQUE: Single frontal chest radiograph. COMPARISON: None. Findings: Lines/Tubes/Devices/Hardware: None. Lungs: The lung volumes are within normal limits. No focal consolidation. No pulmonary vascular congestion. Pleura: No evidence of pneumothorax. No pleural effusions. Heart and Mediastinum: The cardiomediastinal silhouette is within normal limits. Bones and Soft Tissues: The bones are normal. The soft tissues are normal. Upper Abdomen: Normal. IMPRESSION: No acute cardiopulmonary disease. EXAM: CT ABDOMEN/PELVIS WITH CONTRAST HISTORY: Acute epigastric abdominal pain. Vomiting, chills and diarrhea. COMPARISON: None. TECHNIQUE: Multi-slice postcontrast transaxial helical images are acquired through the abdomen and pelvis with coronal and sagittal reconstructed images. All CT scans are performed using dose optimization techniques as appropriate to the performed exam and includes at least one of the following: Automated exposure control, adjustment of the mA and/or kV according to size, and the use of iterative reconstruction technique. CONTRAST: 100 mL Omnipaque-350 IV FINDINGS: Lung bases: The lung bases are clear. Liver: The hepatic attenuation is diffusely low relative to the spleen. Hepatic surface contour is nodular. The portal and hepatic veins are patent. The main portal vein is dilated to 1.7 cm. Small varices are suggested in the gastrohepatic ligament. Gallbladder/bilary tree: No pericholecystic fat stranding or biliary duct dilatation. Pancreas: Normal. Adrenal glands: Normal. Spleen: Enlarged to 14.9 cm cranial-caudal with normal attenuation. Kidneys: Normal. Retroperitoneum: Normal. Peritoneum: Normal. Bowel: The appendix is normal. No intestinal distension. The large bowel maintains normal caliber. No fluid is appreciated within the rectum. Pelvis: Normal. Addominal wall/bones: Normal. IMPRESSION: - Diffuse hepatic steatosis and possible cirrhosis with portal hypertension manifested by dilated main portal vein, varices and splenomegaly. - No suspicious hepatic masses or ascites. - Nonobstructive intestinal gas pattern and normal appendix. EXAM: ULTRASOUND ABDOMINAL COMPLETE HISTORY: Cirrhosis. TECHNIQUE: Sonography of the abdomen was performed. Images were obtained and stored in a permanent archive. Markedly limited exam. COMPARISON: CT abdomen and pelvis 03/22/2025 FINDINGS: Pancreas: Within normal limits. Liver: Liver is enlarged measuring up to 20 cm. Increased echogenicity. No lesions. Portal vein is not visualized. Subtle nodular contour suggestive of early cirrhosis per Biliary: No duct dilation. Common bile duct measures 0.5 cm. No gallstones. No wall thickening. No surrounding inflammatory change. Spleen: No splenomegaly. No lesions. Right Kidney: No hydronephrosis. No lesions. No calculus. Left Kidney: Right kidney measures 11.2 cm. No hydronephrosis. No lesions. No calculus. IVC: Patent. Other: No ascites. IMPRESSION: - Limited study. - Possible early hepatic cirrhosis. No evidence of ascites at this time. - Hepatomegaly hepatic steatosis. Correlation with LFTs recommended. - Nonvisualization of the portal vein. However, portal vein was patent on the prior CT from 03/22/2025 Review Review Statement: I have independently reviewed and interpreted the labs/EKGs/imaging that were ordered by the ER provider. I have reviewed all outside records that are available currently in our EMR including imaging/notes/labs from previous visits. Plan Reccomendations/Plan: 1. Epigastric pain - protonix and pepcid ordered, advance diet as tolerated, RUQ to r/o gallbladder pathology, lipase normal, ct a/p negative for acute findings. Could be gastritis related given recent hx of acid reflux sx. 2. Ct findings concerning for cirrhosis/varices/splenomegaly - Hep panel ordered. Liver enzymes and coags normal. Denies alcohol use. Will need to f/u with GI outpatient. Will start on nonselective bb. 3. Hypertension - chronic. Will start on antihypertensive. Monitor at home, they have BP cuff. F/u with pcp when able . 4. Tachycardia - sinus. D dimer normal. No respiratory symptoms. Will choose beta rosemary. Historically has had elevated HR when here. Today patient's white blood cell count is improved to 14. Vitals are stable although his heart rate is still around 100. D-dimer, Trop, liver enzymes, coags, tsh, A1c normal. Lipid panel overall normal except for triglycerides are mildly elevated. Right upper quadrant ultrasound showing a normal gallbladder, also showing signs of cirrhosis. Regarding his epigastric pain, he has not had any more episodes since prior to the ER yesterday. Lipase was normal. We discussed the possibility of gastritis like symptoms, given his acid reflux this past week. We can trial omeprazole and Pepcid for 2 weeks to see if there is any improvement. Discussed that his gallbladder is anatomically normal, however cannot rule out the function of his gallbladder. If he continues to have frequent episodes of eating a fatty meal followed by epigastric pain and diarrhea, would certainly need to look into a HIDA scan. In regards to his CT abdomen pelvis findingshe denies any alcohol use. Denies any family history of liver issues. Discussed the importance of gastroenterology follow-up to look into further why he is developing cirrhosis. It is already causing splenomegaly and signs of varices. This is concerning at his age of 34. Hepatitis panel is pending. Due to signs of liver disease, elevated blood pressure, and mildly elevated heart rate, we will go ahead and start on nonselective beta-rosemary nadolol 20 mg daily. Unfortunately patient is in between having insurance right now. Discussed with him as soon as he is able to get insurance that is very important for him to follow-up with a primary care provider to get a referral to gastroenterology, otherwise we would be happy to go ahead and initiate that process. Advised patient to stop smoking and no alcohol use although he states that is very rare for him to drink. Discussed to limit Tylenol or ibuprofen use given his liver issues and potentially gastritis related symptoms. Educated on hypertension. Educated on lifestyle changes. All questions answered and at bedside in agreement with plan as well. Discharge diagnoses: 1. Epigastric pain, resolved 2. Concern for cirrhosis/varices/splenomegaly 3. Hypertension 4. Sinus tach Additional Planning: Case discussed with ED Physician, Dr. Sheldon. DVT Prophylaxis: Ambulation Advanced Care Plannin minutes spent discussing advance care planning. Smoking Cessation: 3 minutes spent discussing smoking cessation. Admit to: Obs Discussed Plan of Care with Dr. Eric May. Review With Patient Reviewed with Patient and Family: Patient and family have been counseled on condition and care plan and have no immediate questions. I have personally discussed and reviewed the patient's visit/current labs/imaging/decision making with Dr. Eric May, my supervising attending. Total number of minutes spent with patient [85] min. More than 50% of the time spent with this patient was devoted to counseling and coordination of care. Time of Admission:03/22/25 22:37 Time of Discharge: 03/23/25 0900 Discharge Plan Discharge Discharge Orders: Discharge Patient (ONCE); Ordered 03/23/25 Ordered By: ARABELLA SAINZ Activity Restrictions/Additional Instructions: DISCHARGE TO HOME DX: ABDOMINAL PAIN DIET: LOW FAT ACTIVITY: TOLERATED PHARMACY: [facility] YOU'VE BEEN PRESCRIBED NADOLOL, WHICH WILL HELP WITH BLOOD PRESSURE, HEART RATE, AND LIVER ISSUES PLEASE CALL US IF IT IS EXPENSIVE, WILL TRY A DIFFERENT ONE *PLEASE ESTABLISH WITH A Primary Care Provider SOON YOU HAVE INSURANCE AVAILABLE *ONCE YOU SEE PCP, LET THEM KNOW YOU HAVE SIGNS OF CIRRHOSIS, SPLENOMEGALY (ENLARGED SPLEEN), AND VARICES (ENLARGED VEINS) AND NEED A REFERRAL TO GI SPECIALIST *AVOID ALCOHOL AND FREQUENT TYLENOL USE *REGARDING ABDOMINAL PAIN; TRY OMEPRAZOLE 40 MG DAILY AND FAMOTIDINE (PEPCID) 20 MG TWICE DAILY FOR 2 WEEKS *IF EPISODES CONTINUE, CONSIDER HIDA SCAN TO CHECK FUNCTION OF GALL BLADDER STOP SMOKING. NO ALCOHOL USE. Instructions: Nadolol (By mouth), Famotidine (By mouth), Omeprazole (By mouth), Low Fat Diet (DC), Abdominal Pain (DC), Hypertension (DC) Care Plan Goals: Problem: Alteration in Comfort/Pain Goal: Manage pain at a tolerable level Instructions: Monitor character, location and intensity Express expectations of pain relief Pain medication as ordered Position for maximal comfort Pain management prior to activities Problem: Elevated blood pressure Goal: Medically managed blood pressure Instructions: Monitor blood pressure as needed Medication for elevated blood pressure as directed Monitor for signs/symptoms of elevated blood pressure Patient Disposition: HOME SELF-CARE Prescriptions: New nadolol 20 mg tablet 20 mg PO DAILY Qty: 30 0RF Did you review [place] PRIMARY EDUCATION PROFESSOR for ALL controlled substances?: Not Applicable Discussed opioids are addictive and Narcan is available by prescription or from pharmacy.: No Condition: Stable Referrals: AMI WYNN MD [STAFF PHYSICIAN, Family Practice] - 03/29/25 11:00 am Referral Note: this is a hospital follow up appointment. following this please request to initiate your care with the [facility], Dr. Estevez, or whomever you would like to est. with.
[2025-03-24 05:10] LABS: HBsAgSCREEN Negative (Negative); HCV ANTIBODY Non Reactive (Non Reactive)
== END 2025-03-23 12:25 | disposition home or self-care (01) ==
LOC: ED 19:30 → MEDSURG B 19:30
PROVIDERS: ADMIT Hospitalist; ATTEND Physician Assistant